=== PATIENT | female | born 1950 ===

== ENCOUNTER 2022-04-01 22:57 | Emergency (ER) | payer MEDICARE ==
[~2022-04-01] VITALS: Ht 149.9 cm; Wt 45.4 kg
[2022-04-01 23:27] LABS: BASOPHILS ABSOLUTE AUTO 0.04 K/mm3 (0.00-0.23); BASOPHILS PERCENT AUTO 0 % (0-2); EOSINOPHILS PERCENT AUTO 0 % (0-6); Hematocrit 35.4 % (33.0-51.0); Hemoglobin 12.1 g/dL (11.5-16.0); IMMATURE GRAN ABSOLUTE AUTO 0.11 K/mm3 (0.00-0.10); IMMATURE GRAN PERCENT AUTO 1 % (0-1); LYMPHOCYTES ABSOLUTE AUTO 1.08 K/mm3 (0.84-5.20); LYMPHOCYTES PERCENT AUTO 9 % (21-46); MONOCYTES ABSOLUTE AUTO 0.78 K/mm3 (0.16-1.47); MONOCYTES PERCENT AUTO 6 % (4-13); Mean Corpuscular HGB 28.1 pg (26.0-34.0); Mean Corpuscular HGB Conc 34.2 g/dL (31.5-36.5); Mean Corpuscular Volume 82 fL (80-100); Mean Platelet Volume 9.6 fL (9.1-12.4); NEUTROPHILS ABSOLUTE AUTO 10.72 K/mm3 (1.96-9.15); NEUTROPHILS PERCENT AUTO 84 % (41-73); Platelet Count 298 K/mm3 (150-400); RDW Coefficient Variation 14.3 % (11.7-14.2); RDW Standard Deviation 42.5 fL (35.1-46.3); White Blood Cell Count 12.73 K/mm3 (4.00-11.30)
[2022-04-01 23:52] LABS: Albumin, Blood 3.3 g/dL (3.4-5.0); Albumin/Globulin Ratio 0.7 (0.8-1.8); Bilirubin, Total 0.6 mg/dL (0.1-1.0); Bun/Creatinine Ratio 20.4 (12.0-20.0); Calcium, Blood 8.8 mg/dL (8.5-10.1); Creatinine, Blood 0.88 mg/dL (0.40-1.00); Globulin, Blood 4.6 g/dL (2.2-4.0); Potassium, Blood 5.5 mmol/L (3.5-5.5); Total Protein, Blood 7.9 g/dL (6.4-8.2)
[2022-04-02 00:49] LABS: Influenza B, PCR NEGATIVE (NEGATIVE); Resp Syncytial Virus, PCR NEGATIVE (NEGATIVE); SARS-Cov-2 (COVID-19) PCR, MMC NEGATIVE (NEGATIVE)
[2022-04-02 00:55] LABS: Influenza A, PCR POSITIVE (NEGATIVE)
[2022-04-02 02:15] LABS: Source, Urine Straight Cath
[2022-04-02 02:22] LABS: Appearance, Urine Clear (Clear); Bilirubin, Urine Neg (Neg); Blood, Urine Neg (Neg); Color, Urine Yellow (P-Yellow); Glucose Qualitative, Urine 4+ (Neg); Ketones, Urine 2+ (Neg); Leukocyte Esterase, Urine Neg (Neg); Nitrite, Urine Neg (Neg); Protein, Urine 1+ (Neg); Urobilinogen, Urine NORM (Normal)
[2022-04-02] MEDS ORDERED: OSEL75CA PO (02:57)
[2022-04-03] MEDS ORDERED: GABA300 PO (21:12)
[2022-04-03] MEDS ORDERED: GLIP10 PO (21:13)
[2022-04-03] MEDS ORDERED: DOXA2 PO ×2 (21:13→21:14)
[2022-04-03] MEDS ORDERED: Prinivil10 MG PO (21:14)
[2022-04-03] MEDS ORDERED: METF500 PO (21:15)
[2022-04-03] MEDS ORDERED: MAGNESIUM OXID500 MG PO (21:15)
[2022-04-03] MEDS ORDERED: PRAV20 PO (21:16)
[2022-04-03] MEDS ORDERED: KAPSPARGO SPRIN25 MG PO (21:16)
[2022-04-03] MEDS ORDERED: BASAGLAR K100 UNIT/1 SC (21:17)
== END 2022-04-02 03:30 | disposition home or self-care (01) ==
LOC: ER 22:57
PROVIDERS: Emergency Medicine
DX: J10.1 Influenza due to other identified influenza virus with other respiratory manifestations (principal); E11.9 Type 2 diabetes mellitus without complications; Z20.822 Contact with and (suspected) exposure to COVID-19; Z79.4 Long term (current) use of insulin; Z79.899 Other long term (current) drug therapy
CPT/HCPCS: 0241U; 36415; 51701; 71045; 80053; 83605; 85025; 93005; 93010; 99284-25; A9270; J7030

== ENCOUNTER 2022-04-03 10:49 | Inpatient (IN) | payer MEDICARE ==
[~2022-04-03] VITALS: Ht 152.4 cm; Wt 45.4 kg
[~2022-04-03 10:49] MED LIST: OSEL75CA PO
[2022-04-03 11:40] LABS: Calcium, Ionized (POC) 0.94 mmol/L (1.10-1.46); Chloride (POC) 102 mmol/L (98-108); Creatinine (POC) 0.8 mg/dL (0.6-1.0); Glucose (ISTAT POC) 294 mg/dL (70-99); Hemoglobin (POC) 11.9 g/dL (12.0-16.0); Potassium (POC) 4.9 mmol/L (3.5-5.5); Sodium (POC) 130 mmol/L (135-148); Total CO2 (POC) 16 mmol/L (21-32)
[2022-04-03 11:51] LABS: Hematocrit 31.4 % (33.0-51.0); Hemoglobin 10.1 g/dL (11.5-16.0); Mean Corpuscular HGB Conc 32.2 g/dL (31.5-36.5); Mean Platelet Volume 10.4 fL (9.1-12.4); Platelet Count 149 K/mm3 (150-400); RDW Coefficient Variation 15.4 % (11.7-14.2); RDW Standard Deviation 50.6 fL (35.1-46.3); Red Blood Cell Count 3.48 M/mm3 (3.80-5.20); White Blood Cell Count 17.42 K/mm3 (4.00-11.30)
[2022-04-03 11:53] LABS: Mean Corpuscular Volume 90 fL (80-100)
[2022-04-03 12:08] LABS: Albumin, Blood 2.1 g/dL (3.4-5.0); Albumin/Globulin Ratio 0.5 (0.8-1.8); Bilirubin, Total 1.2 mg/dL (0.1-1.0); Bun/Creatinine Ratio 29.7 (12.0-20.0); Creatinine, Blood 0.64 mg/dL (0.40-1.00); Globulin, Blood 4.6 g/dL (2.2-4.0); Potassium, Blood 5.2 mmol/L (3.5-5.5); Total Protein, Blood 6.7 g/dL (6.4-8.2)
[2022-04-03 13:15] LABS: BASOPHILS PERCENT MAN 0 % (0-2); EOSINOPHILS PERCENT MAN 0 % (0-6); LYMPHOCYTES ABSOLUTE MAN 1.21 K/mm3 (0.84-5.20); LYMPHOCYTES PERCENT MAN 7 % (21-46); MONOCYTES ABSOLUTE MAN 0.17 K/mm3 (0.16-1.47); MONOCYTES PERCENT MAN 1 % (4-13); NEUTROPHILS ABSOLUTE MAN 16.02 K/mm3 (1.96-9.15); SEG NEUTROPHILS PERCENT MAN 92 % (41-73); TOTAL CELLS COUNTED 100
[2022-04-03 14:05] LABS: Bicarbonate Venous 18.7 mmol/L (24.0-30.0); PCO2 Venous 29.4 mmHg (38-42); pH Blood Venous 7.38 (7.34-7.37)
--- NOTE | 2022-04-03 19:15 | NUR ---
PATIENT ARRIVED TO ROOM AT 1855. TRANSFERRED PATIENT TO BED USING SLIDER SHEET c 3 MAX ASSIST. REPORT GIVEN TO TITO GALARZA.
[2022-04-03] MEDS ORDERED: GABA300 PO (21:12)
[2022-04-03] MEDS ORDERED: DOXA2 PO ×2 (21:13→21:14)
[2022-04-03] MEDS ORDERED: GLIP10 PO (21:13)
[2022-04-03] MEDS ORDERED: Prinivil10 MG PO (21:14)
[2022-04-03] MEDS ORDERED: MAGNESIUM OXID500 MG PO (21:15)
[2022-04-03] MEDS ORDERED: METF500 PO (21:15)
[2022-04-03] MEDS ORDERED: PRAV20 PO (21:16)
[2022-04-03] MEDS ORDERED: KAPSPARGO SPRIN25 MG PO (21:16)
[2022-04-03] MEDS ORDERED: BASAGLAR K100 UNIT/1 SC (21:17)
--- NOTE | 2022-04-04 00:02 | NUR ---
2000 ASSESSMENT, ADMISSION COMPLETE. FAMILY ATBEDSIDE FOR TRANSLATION. SKIN ASSESSMENT COMPLETE, SKIN INTACT. PT DENIES SOB/CP/ N/V. REPORTS A COUGH AND FEELING WEAK. AMBULATED TO BATHROOM WITH X1 ASSIST AND FWW. IV FLUIDS CONTINUED. FAMILY BROUGHT IN MEDICATIONS AND LEFT PRIOR TO COMPLETING MED RED. MEDICATION BOTTLES IN LOCKED PT CHART BOX. PT ORIENTED X4, SPANIHS SPEAKING ONLY. FAMILY TRANSLATED USE OF CALL LIGHT AND PLAN OF CARE. NO FURTHER QUESTIONS FROM PT. 0000 PT HAS FEVER OR 102, ADMINISTERED TYLENOL AND ICE PACKS UNDER ARMS. FEVER DOWN TO 99.0. PT STILL LOOKING FLUSHED, ADMINISTERED PRN ADVIL.
[2022-04-04 04:37] LABS: Hematocrit 26.8 % (33.0-51.0); Hemoglobin 9.1 g/dL (11.5-16.0); Mean Corpuscular HGB 28.3 pg (26.0-34.0); Mean Platelet Volume 9.3 fL (9.1-12.4); Platelet Count 274 K/mm3 (150-400); RDW Coefficient Variation 14.9 % (11.7-14.2); RDW Standard Deviation 45.4 fL (35.1-46.3); Red Blood Cell Count 3.21 M/mm3 (3.80-5.20); White Blood Cell Count 19.84 K/mm3 (4.00-11.30)
[2022-04-04 04:46] LABS: Mean Corpuscular Volume 84 fL (80-100)
[2022-04-04 04:59] LABS: Bun/Creatinine Ratio 27.8 (12.0-20.0); Calcium, Blood 7.6 mg/dL (8.5-10.1); Creatinine, Blood 0.79 mg/dL (0.40-1.00); Magnesium, Blood 1.4 mg/dL (1.6-2.4); Potassium, Blood 4.1 mmol/L (3.5-5.5)
--- NOTE | 2022-04-04 05:22 | NUR ---
SHIFT SUMMARY NO CHANGES IN PT CONDITION SINCE ADMISSION/PREVIOUS NOTE. FEVER BROKE, 97.7 ORAL TEMP THIS MORNING. PT LOOKS FLUSHED, USING STAVE BLOCK SPLITTER TO TRANSLATE, PT STATES SHE FEEL BETTER THIS MORNING AND DOESNT FEEL WARM. BG 250. VITALS STABLE. PT ABLE TO MAKE NEEDS KNOWN, CALL LIGHT IN REACH.
--- NOTE | 2022-04-04 17:20 | NUR ---
SHIFT SUMMARY- PT FAMILY AT BEDSIDE THIS AFTERNOON. COMMUNICATION EASE WITH FAMILY. PT EXPRESSED R EYE LOSS OF VISION. PT HAD SCHEDULED APPT FOR SCREENIGN OF EYE BUT WAS ADMITTED TO HOSPITAL. IV PATENT. AFEBRILE THIS SHIFT. PT EXPRESSED TO FAMILY THAT SHE DID NOT HAVE PAIN OR DISCOMFORT TODAY. PT STATED SHE WAS EAGER TO RETURN HOME. NO SBO NOTED. ON RA. WILL CONTIUE TO MONITOR. CALL LIGHT IN REACH, SIDE RAILS UP FOR SAFETY, BED ALARM ON.
--- NOTE | 2022-04-04 18:37 | NUR ---
FAMILY VISITING. COMMUNICATION RELAYED TO PT FOR PT CONCERNS. GAVE HOME MEDS TO FAMILY TO TAKE HOME.
--- NOTE | 2022-04-05 03:41 | NUR ---
SHIFT SUMMARY NO OVERNIGHT EVENTS. VITALS STABLE, AFEBRILE. ALLOWING CARES. CONTINUES FLUIDS AND IV ABX. PT ORIENTED X4, FAROESE SPEAKING ONLY. AMBULATES TO BATHROOM [id number] WITH FWW. DENIES PAIN/SOB, PT DOES HAVE COUGH. CONTINUE DROPLET PRECAUTIONS. CALL LIGHT IN REACH, ABLE TO MAKE NEEDS KNOWN.
[2022-04-05 04:54] LABS: BASOPHILS ABSOLUTE AUTO 0.04 K/mm3 (0.00-0.23); BASOPHILS PERCENT AUTO 0 % (0-2); EOSINOPHILS ABSOLUTE AUTO 0.13 K/mm3 (0.00-0.68); EOSINOPHILS PERCENT AUTO 1 % (0-6); Hematocrit 24.3 % (33.0-51.0); Hemoglobin 8.3 g/dL (11.5-16.0); IMMATURE GRAN ABSOLUTE AUTO 0.08 K/mm3 (0.00-0.10); IMMATURE GRAN PERCENT AUTO 1 % (0-1); LYMPHOCYTES ABSOLUTE AUTO 1.59 K/mm3 (0.84-5.20); LYMPHOCYTES PERCENT AUTO 13 % (21-46); MONOCYTES ABSOLUTE AUTO 0.68 K/mm3 (0.16-1.47); MONOCYTES PERCENT AUTO 6 % (4-13); Mean Corpuscular HGB 28.7 pg (26.0-34.0); Mean Corpuscular HGB Conc 34.2 g/dL (31.5-36.5); Mean Corpuscular Volume 84 fL (80-100); Mean Platelet Volume 9.5 fL (9.1-12.4); NEUTROPHILS ABSOLUTE AUTO 9.72 K/mm3 (1.96-9.15); NEUTROPHILS PERCENT AUTO 79 % (41-73); Platelet Count 293 K/mm3 (150-400); RDW Standard Deviation 46.4 fL (35.1-46.3); Red Blood Cell Count 2.89 M/mm3 (3.80-5.20); White Blood Cell Count 12.24 K/mm3 (4.00-11.30)
[2022-04-05 05:11] LABS: Bun/Creatinine Ratio 28.6 (12.0-20.0); Calcium, Blood 7.6 mg/dL (8.5-10.1); Creatinine, Blood 0.6 mg/dL (0.40-1.00); Potassium, Blood 3.9 mmol/L (3.5-5.5)
[2022-04-05 09:30] LABS: Percent Saturation 17.8 % (15.0-50.0)
--- NOTE | 2022-04-05 16:12 | NUR ---
SHIFT SUMMARY PT RESTING QUIETLY AT START OF SHIFT. IVF'S INFUSING PER EMAR. PT ARABIC SPEAKING ONLY, BUT ABLE TO MAKE NEEDS KNOWN. 1P SBA WITH IV PUMP TO BTHRM AND BACK. MEDS TAKEN WHOLE WITH H2O. IV ABX GIVEN PER EMAR. DR THURMAN IN TO SEE PT THIS AM. PT TO STAY ONE MORE DAY FOR IV ABX. LUNGS T/O COARSE WITH EXP WHEEZES THRU OUT. PT ON RA, VSS; SEE CHART. POSSIPLE D/C TO HOME TOMORROW. CALL LT IN REACH.
--- NOTE | 2022-04-06 03:12 | NUR ---
PLEASANT A&OX4, REQUIRES TRANSLATING SYSTEM FOR NEW MEDS OR ANY UNFAMILIARS. DRINKING WELL. NO NAUSEA OR TEMP. HOPING TO GO HOME TOMORROW. STILL GETTING PO TAMIFLU LIQUID
[2022-04-06 04:29] LABS: Base Excess Venous 0.7 mmol/L; Bicarbonate Venous 25.3 mmol/L (24.0-30.0); PCO2 Venous 30.3 mmHg (38-42)
[2022-04-06 05:09] LABS: BASOPHILS ABSOLUTE AUTO 0.04 K/mm3 (0.00-0.23); BASOPHILS PERCENT AUTO 1 % (0-2); EOSINOPHILS ABSOLUTE AUTO 0.13 K/mm3 (0.00-0.68); EOSINOPHILS PERCENT AUTO 2 % (0-6); Hematocrit 24.3 % (33.0-51.0); Hemoglobin 8.3 g/dL (11.5-16.0); IMMATURE GRAN ABSOLUTE AUTO 0.07 K/mm3 (0.00-0.10); IMMATURE GRAN PERCENT AUTO 1 % (0-1); LYMPHOCYTES ABSOLUTE AUTO 2.02 K/mm3 (0.84-5.20); LYMPHOCYTES PERCENT AUTO 30 % (21-46); MONOCYTES ABSOLUTE AUTO 0.48 K/mm3 (0.16-1.47); MONOCYTES PERCENT AUTO 7 % (4-13); Mean Corpuscular HGB 27.9 pg (26.0-34.0); Mean Corpuscular HGB Conc 34.2 g/dL (31.5-36.5); Mean Corpuscular Volume 82 fL (80-100); Mean Platelet Volume 9.6 fL (9.1-12.4); NEUTROPHILS ABSOLUTE AUTO 4.05 K/mm3 (1.96-9.15); NEUTROPHILS PERCENT AUTO 60 % (41-73); Platelet Count 327 K/mm3 (150-400); RDW Coefficient Variation 15.1 % (11.7-14.2); RDW Standard Deviation 45.2 fL (35.1-46.3); Red Blood Cell Count 2.98 M/mm3 (3.80-5.20); White Blood Cell Count 6.79 K/mm3 (4.00-11.30)
[2022-04-06 05:35] LABS: Bun/Creatinine Ratio 14.2 (12.0-20.0); Calcium, Blood 7.6 mg/dL (8.5-10.1); Creatinine, Blood 0.57 mg/dL (0.40-1.00); Potassium, Blood 3.8 mmol/L (3.5-5.5)
[2022-04-06] MEDS ORDERED: LACT PO (12:04)
[2022-04-06] MEDS ORDERED: AZIT250 PO (12:04)
[2022-04-06] MEDS ORDERED: CEFU500T30 PO (12:05)
--- NOTE | 2022-04-06 18:29 | NUR ---
PT AWAKE AT START OF SHIFT, RESTING QUIETLY WATCHING TV. PT INQUIRED ABOUT GOING HOME. DR THURMAN NOTIFIED ABOUT D/C. PT TO D/C WITH PO ABX. D/C ORDERS PLACED. MEDS FAXED TO [facility] PER FAMILY REQUEST. FAMILY NOTIFIED OF PT D/C FOR P/U. FAMILY UNAVAILABLE FOR SEVERAL HOURS AFTER BEING NOTIFIED. FAMILY FINALLY HERE TO P/U PT. D/C ORDERS AND MEDS REVIEWED WITH RJ, SON-N-LAW, PER REQUEST; VERBALIZED UNDERSTANDING. PT ASSISTED OUT TO FAMILY CAR VIA W/C WITH BELONGINGS.
== END 2022-04-06 15:22 | disposition home or self-care (01) | DRG 871 ==
LOC: ER 10:49 → ERHOLD 14:26 → MEDS 14:26
PROVIDERS: Internal Medicine; Nurse Practitioner Acute Care; Physician Assistant; Student in an Organized Health Care Education/Training Program; ADMIT Internal Medicine
DX: A41.9 Sepsis, unspecified organism (principal); J10.08 Influenza due to other identified influenza virus with other specified pneumonia; J15.9 Unspecified bacterial pneumonia; E87.1 Hypo-osmolality and hyponatremia; E87.4 Mixed disorder of acid-base balance; R65.20 Severe sepsis without septic shock; E83.51 Hypocalcemia; I10 Essential (primary) hypertension; E78.5 Hyperlipidemia, unspecified; E86.0 Dehydration; D64.9 Anemia, unspecified; E11.9 Type 2 diabetes mellitus without complications; Z79.4 Long term (current) use of insulin; Z79.899 Other long term (current) drug therapy
CPT/HCPCS: 36415; 71045; 80047; 80048; 80053; 82728; 82803; 82947; 83540; 83550; 83605; 83735; 84145; 85014; 85025; 85027; A9270; J0456; J0696; J1650; J1815; J2405; J7030; J7050

== ENCOUNTER → 2022-08-07 | Outpatient (CLI) | payer SELFPAY ==
[~2022-08-07] MED LIST changes: +AZIT250 PO; +BASAGLAR K100 UNIT/1 SC; +CEFU500T30 PO; +DOXA2 PO; +GABA300 PO; +GLIP10 PO; +KAPSPARGO SPRIN25 MG PO; +LACT PO; +MAGNESIUM OXID500 MG PO; +METF500 PO; +PRAV20 PO; +Prinivil10 MG PO
[2022-08-07 16:22] LABS: Microalb/Creat Ratio UR, Rand 62.981 mg/g (0.000-30.000); Microalbumin, Random Urine 65.5 mg/L (0.000-20.000)
== END | disposition home or self-care (01) ==
LOC: LAB SHORT 12:45 → LAB 12:45
PROVIDERS: Family Medicine
DX: E11.9 Type 2 diabetes mellitus without complications (principal); E03.9 Hypothyroidism, unspecified
CPT/HCPCS: 82043; 82570; 84443

== ENCOUNTER → 2022-09-11 | Outpatient (CLI) | payer MEDICARE ==
[~2022-09-11] MED LIST changes: +ONDA4ODT MM
== END | disposition home or self-care (01) ==
LOC: LAB 16:14 → LAB SHORT 16:14
DX: R35.0 Frequency of micturition (principal)
CPT/HCPCS: 87086

== ENCOUNTER → 2022-11-06 | Outpatient (CLI) | payer SELFPAY ==
[2022-11-06 19:11] LABS: BASOPHILS ABSOLUTE AUTO 0.05 K/mm3 (0.00-0.23); BASOPHILS PERCENT AUTO 1 % (0-2); EOSINOPHILS ABSOLUTE AUTO 0.21 K/mm3 (0.00-0.68); EOSINOPHILS PERCENT AUTO 3 % (0-6); Hematocrit 36.7 % (33.0-51.0); IMMATURE GRAN ABSOLUTE AUTO 0.02 K/mm3 (0.00-0.10); IMMATURE GRAN PERCENT AUTO 0 % (0-1); LYMPHOCYTES ABSOLUTE AUTO 2.48 K/mm3 (0.84-5.20); LYMPHOCYTES PERCENT AUTO 41 % (21-46); MONOCYTES ABSOLUTE AUTO 0.39 K/mm3 (0.16-1.47); MONOCYTES PERCENT AUTO 6 % (4-13); Mean Corpuscular HGB 27.1 pg (26.0-34.0); Mean Corpuscular HGB Conc 32.7 g/dL (31.5-36.5); Mean Corpuscular Volume 83 fL (80-100); Mean Platelet Volume 11.4 fL (9.1-12.4); NEUTROPHILS ABSOLUTE AUTO 2.98 K/mm3 (1.96-9.15); NEUTROPHILS PERCENT AUTO 49 % (41-73); Platelet Count 246 K/mm3 (150-400); RDW Coefficient Variation 13.1 % (11.7-14.2); RDW Standard Deviation 39.3 fL (35.1-46.3); Red Blood Cell Count 4.42 M/mm3 (3.80-5.20); White Blood Cell Count 6.13 K/mm3 (4.00-11.30)
== END | disposition home or self-care (01) ==
LOC: LAB 18:19 → LAB SHORT 18:19
PROVIDERS: Nurse Practitioner Family
DX: E11.9 Type 2 diabetes mellitus without complications (principal); I10 Essential (primary) hypertension; E03.9 Hypothyroidism, unspecified; H53.8 Other visual disturbances
CPT/HCPCS: 83036; 84443; 85025

== ENCOUNTER 2022-12-08 08:48 | Inpatient (IN) | payer MEDICARE ==
[2022-12-08] VITALS (41 sets, daily range): BP systolic 100–148; BP diastolic 48–67
[~2022-12-08] VITALS: Ht 152.4 cm; Wt 53.1 kg
[2022-12-08 10:26] LABS: BASOPHILS ABSOLUTE AUTO 0.05 K/mm3 (0.00-0.23); BASOPHILS PERCENT AUTO 1 % (0-2); EOSINOPHILS ABSOLUTE AUTO 0.19 K/mm3 (0.00-0.68); EOSINOPHILS PERCENT AUTO 2 % (0-6); Hematocrit 34.7 % (33.0-51.0); Hemoglobin 11.6 g/dL (11.5-16.0); IMMATURE GRAN ABSOLUTE AUTO 0.06 K/mm3 (0.00-0.10); IMMATURE GRAN PERCENT AUTO 1 % (0-1); LYMPHOCYTES ABSOLUTE AUTO 2.61 K/mm3 (0.84-5.20); LYMPHOCYTES PERCENT AUTO 29 % (21-46); MONOCYTES ABSOLUTE AUTO 0.52 K/mm3 (0.16-1.47); MONOCYTES PERCENT AUTO 6 % (4-13); Mean Corpuscular HGB Conc 33.4 g/dL (31.5-36.5); Mean Corpuscular Volume 81 fL (80-100); Mean Platelet Volume 10.5 fL (9.1-12.4); NEUTROPHILS ABSOLUTE AUTO 5.56 K/mm3 (1.96-9.15); NEUTROPHILS PERCENT AUTO 62 % (41-73); Platelet Count 249 K/mm3 (150-400); RDW Coefficient Variation 13.6 % (11.7-14.2); RDW Standard Deviation 39.8 fL (35.1-46.3); Red Blood Cell Count 4.29 M/mm3 (3.80-5.20); White Blood Cell Count 8.99 K/mm3 (4.00-11.30)
[2022-12-08 11:45] LABS: Bun/Creatinine Ratio 19.1 (12.0-20.0); Calcium, Blood 9.3 mg/dL (8.5-10.1); Creatinine, Blood 1.31 mg/dL (0.40-1.00); Potassium, Blood 5.3 mmol/L (3.5-5.5)
[2022-12-08] MEDS ORDERED: JARDIANCE25 MG PO (11:59)
[2022-12-08] MEDS ORDERED: AMLO10 PO (11:59)
[2022-12-08] MEDS ORDERED: METO25ER PO (11:59)
[2022-12-08] MEDS ORDERED: GABA300 PO (12:00)
[2022-12-08] MEDS ORDERED: METF500 PO (12:03)
[2022-12-08] MEDS ORDERED: LISI20 PO (12:04)
[2022-12-08] MEDS ORDERED: LEVSOD25 PO (12:04)
[2022-12-08] MEDS ORDERED: PRAV20 PO (12:05)
[2022-12-08] MEDS ORDERED: MAGNESIUM OXID500 MG PO (12:05)
[2022-12-08] MEDS ORDERED: CARDURA2 M2 PO (12:05)
[2022-12-08 12:22] LABS: Source, Urine Foley catheter
[2022-12-08 12:26] LABS: Appearance, Urine Clear (Clear); Bilirubin, Urine Neg (Neg); Blood, Urine Neg (Neg); Glucose Qualitative, Urine 4+ (Neg); Ketones, Urine 1+ (Neg); Leukocyte Esterase, Urine Neg (Neg); Nitrite, Urine Neg (Neg); Protein, Urine Neg (Neg); Urobilinogen, Urine NORM (Normal)
[2022-12-08 12:36] LABS: Color, Urine Pale Yellow (P-Yellow)
--- NOTE | 2022-12-08 13:30 | NUR ---
INITIAL ASSESSMENT PATIENT ARRIVED FROM ER AT 1255. PATIENT INTUBATED AND SEDATED. PATIENT RESPONDS TO NOXIOUS STIMULI WITH GRIMACING AND SLIGHT MOVEMENT OF ALL EXTREMITIES. PATIENT CHINESE SPEAKING ONLY; SENIOR TECHNICAL EDITOR PHONE AT BEDSIDE. PATIENT'S NEPHEW, RJ, HERE AND IS PROVIDING THE INFORMATION THAT HE CAN. RJ STATES THAT PATIENT LIVES WITH HIM AND THEY TAKE HER TO [facility] EACH WEEK FOR THEM TO CHECK UP ON PATIENT AND TO SORT HER MEDICATIONS FOR HER. RJ PHONE NUMBER [phone]. PATIENT AFEBRILE. NO SIGNS OF PAIN NOTED. PATIENT'S TONGUE, CHIN AND ANTERIOR NECK SWOLLEN. PATIENT ON VENT SETTINGS OF AC 15, TV 350, PEEP 5 AND 30% FIO2. ETT 7.0 AND 20 CM AT THE GUM. LUNGS CLEAR AT THIS TIME. PATIENT HAS OCCASIONAL, NONPRODUCTIVE COUGH. PATIENT SB TO SR, HR 50S TO 60S. SBP IN THE 120S. 1+ EDEMA NOTED TO BILAT ANKLES. ABD MILDLY DISTENDED, SOFT, WITH NORMOACTIVE BOWEL SOUNDS NOTED. DATE OF LAST BM UNKNOWN. OG TO LIS. TEMP PROBE SMALLWOOD IN PLACE DRAINING LIGHT YELLOW COLORED URINE. PROPOFOL INFUSING AT 35 MCG/ KG/ MINUTE AND FENTANYL INFUSING AT 25 MCG/ HOUR. BED LOW, CALL LIGHT IN REACH.
--- NOTE | 2022-12-08 16:00 | NUR ---
PATIENT AFEBRILE. HR 40S TO 50S. SBP IN THE 120S. NO SIGNS OF PAIN NOTED. BED LOW, CALL LIGHT IN REACH.
--- NOTE | 2022-12-08 18:29 | NUR ---
CLEARED 44.8 MLS FROM FENTANYL DRIP AND 4.8 MLS FROM VERSED DRIP WITH CRISTI BRAVO RN.
--- NOTE | 2022-12-08 18:46 | NUR ---
SHIFT SUMMARY PATIENT REMAINED INTUBATED AND ON SEDATION. PATIENT RESPONDING TO VERBAL STIMULI AT ONE POINT. VERSED ADDED TO HELP WITH SEDATION. PATIENT REMAINED RESPONDING TO NOXIOUS STIMULI WITH GRIMACING AND MOVEMENT OF EXTREMITIES. PATIENT REMAINED AFEBRILE. PATIENT REMAINED ON VENT SETTINGS OF AC 16, TV 350, PEEP 5 AND 30% FIO2. PATIENT IN SB TO SR, HR 40S TO 60S. SBP LOW 100S TO 130S. NO BM THIS SHIFT. PATIENT REMAINED NPO. OG TO LIS. 600 MLS OF YELLOW URINE OUT FROM SMALLWOOD THIS SHIFT. NO CHANGES TO SKIN NOTED. SWELLING APPEARS UNCHANGED FROM INITIAL ASSESSMENT. PATIENT REPOSITIONED Q2H. PROPOFOL AT 20 MCG/ KG/ MINUTE, VERSED AT 2 MG/ HOUR, FENTANYL AT 25 MCG/ HOUR, NS AT 75 MLS/ HOUR. BLOOD SUGARS 305 AND 173 THIS SHIFT. PATIENT'S SON-IN-LAW, RJ, HERE TO SEE PATIENT THIS SHIFT. BED LOW, CALL LIGHT IN REACH. REPORT WILL BE GIVEN TO ASSUMING HEAD TELLER NURSE SHORTLY.
--- NOTE | 2022-12-08 19:15 | NUR ---
ASSUMPTION OF CARE: RECEIVED REPORT FROM CAMERON GALARZA. INTUBATED AND SEDATED. AC/VC WITH SETTINGS 16/350/5/35%. MAINTAINING SATS >95%. PROPOFOL INFUSING AT 20 MCG/KG/HR. FENTANYL DRIP AT 25 MCG/HR AND VERSED DRIP AT 2 MG/HR. ET TUBE 7.0, 20 CM AT THE GUMS. SCANT, THIN SECRETIONS SUCTIONED OUT OF ET TUBE. LUNG SOUNDS CLEAR IN ALL LOBES. CONTINUOUS CARDIAC MONITORING IN PLACE, HR 40'S-50'S. SBP 120'S. TONGUE AND ANTERIOR NECK HAVE MILD AMOUNTS OF SWELLING. INDWELLING TEMP SMALLWOOD IN PLACE FOR CRITICAL I&O. PATENT AND DRAINING YELLOW URINE TO GRAVITY. Q2 REPOSITIONING. PT HAS A 20 GAUGE IV IN RIGHT HAND WELL A 22 GAUGE IV IN LEFT HAND, BOTH INFUSING, CLEAN, DRY AND INTACT.
[2022-12-09] VITALS (95 sets, daily range): BP systolic 97–136; BP diastolic 43–74
[2022-12-09 03:35] LABS: BASOPHILS ABSOLUTE AUTO 0.01 K/mm3 (0.00-0.23); BASOPHILS PERCENT AUTO 0 % (0-2); EOSINOPHILS PERCENT AUTO 0 % (0-6); Hematocrit 30.6 % (33.0-51.0); Hemoglobin 10.4 g/dL (11.5-16.0); IMMATURE GRAN ABSOLUTE AUTO 0.06 K/mm3 (0.00-0.10); IMMATURE GRAN PERCENT AUTO 1 % (0-1); LYMPHOCYTES ABSOLUTE AUTO 1.12 K/mm3 (0.84-5.20); LYMPHOCYTES PERCENT AUTO 13 % (21-46); MONOCYTES ABSOLUTE AUTO 0.08 K/mm3 (0.16-1.47); MONOCYTES PERCENT AUTO 1 % (4-13); Mean Corpuscular HGB 26.9 pg (26.0-34.0); Mean Corpuscular Volume 79 fL (80-100); Mean Platelet Volume 10.1 fL (9.1-12.4); NEUTROPHILS PERCENT AUTO 85 % (41-73); Platelet Count 230 K/mm3 (150-400); RDW Coefficient Variation 13.6 % (11.7-14.2); RDW Standard Deviation 38.7 fL (35.1-46.3); Red Blood Cell Count 3.87 M/mm3 (3.80-5.20); White Blood Cell Count 8.37 K/mm3 (4.00-11.30)
[2022-12-09 03:53] LABS: Bun/Creatinine Ratio 26.5 (12.0-20.0); Calcium, Blood 8.4 mg/dL (8.5-10.1); Creatinine, Blood 0.87 mg/dL (0.40-1.00); Potassium, Blood 4.3 mmol/L (3.5-5.5)
--- NOTE | 2022-12-09 05:04 | NUR ---
SHIFT SUMMARY: REMAINS INTUBATED AND SEDATED T/O THE SHIFT. AC/VC 16/350/5/30%. SPO2 REMAINS >95%. ET TUBE 7.0 20 CM AT THE GUMS. SCANT AMOUNTS OF THIN, WHITE SECRETIONS SUCTIONED FROM ET TUBE. SPUTUM SAMPLE SENT FROM RT. CLEAR LUNG SOUNDS T/O UPPER AND LOWER LOBES. PROPOFOL DRIP TITRATED DOWN TO 10 MCG/KG/HR T/O THE SHIFT RELATED TO PT BEING BRADYCARDIC. CONTINUOUS CARDIAC MONITORING REMAINS IN PLACE, HR 40'S, SBP 120'S. OPENS EYES SPONTANEOUSLY AND RESPONDS TO PAINFUL STIMULI. FENTANYL DRIP AT 25 MCG/HR, VERSED DRIP AT 2 MG/HR. INFUSING THROUGH PERIPHERAL IV'S IN LEFT AND RIGHT HANDS. TEMP SMALLWOOD IN PLACE WHICH IS PATENT AND DRAINING PALE YELLOW URINE TO GRAVITY. CONTINUES TO HAVE SWELLING IN ANTERIOR NECK AND TONGUE. FAMILY AT THE BEDSIDE THIS EVENING AND UPDATED TO PLAN OF CARE AND PT STATUS.
--- NOTE | 2022-12-09 08:50 | NUR ---
CARE OF PT ASSUMED AT 0700. PT SEDATED ON MECH VENT W PROPOFOL AT 10MCG, VERSED AT 2MG/HR, AND FENT AT 25MCG/HR. PT BRADYCARDIC IN THE 40'S. PT HYPOTENSIVE AT TIMES W MAPS >65. RASS -3. NECK FEELS FIRM, TONGUE APPEARS SWOLLEN. FENTANYL GTT IN LOCK BOX CHANGED TO SUPERVISOR PAIRING AND INSPECTING; CHANGED BY NATHAN RN; NO FENTANYL TO WASTE.
--- NOTE | 2022-12-09 11:53 | NUR ---
FAMILY AT BEDSIDE. PROPOFOL PLACED ON STANDBY. PT NODS HEAD NO TO PAIN, IS ABLE TO FOLLOW SIMPLE COMMANDS.
--- NOTE | 2022-12-09 17:37 | NUR ---
PT WOKE UP SPONT. AT 1700. TRANSLATION SERVICES USED TO COMMUNICATE, PT ABLE TO FOLLOW COMMANDS, NODDED NO TO PAIN, NODDED YES TO ANXIETY; PROPOFOL INCREASED FROM 10MCG TO 20MCG. PT'S HEART RATE IN THE 40'S FOR MAJORITY OF SHIFT WITH OCC HYPOTENSION W MAPS >60-65. PT'S FAMILY CAME IN TODAY FOR ABOUT 15MIN; GIVEN UPDATE. RT CHECKED FOR A LEAK THIS SHIFT AT 1500; LEAK PRESENT. PT WILL LIKELY BE EXTUBATED TOMORROW PER DR ESTRADA.
--- NOTE | 2022-12-09 19:22 | NUR ---
ASSUMED CARE OF PATIENT. RECEIVED REPORT FROM MICHELL EASTMAN. PATIENT IS SLEEPING COMFORTABLY IN BED. BP 108/47, HR OF 42. REMAINS INTUBATED WITH VENT SETTINGS OF 12/350/5/30. ET TUBE 7.0, 20CM AT THE GUMS. O2 SATURATION OF 98. SMALLWOOD IN PLACE, DRAINING CLEAR YELLOW URINE. IV TO BILATERAL HANDS. PROPOFOL INFUSING AT 15MCG/KG/HR, NS AT 75mL/HR, VERSED AT 1MG/HR. WILL CONTINUE TO MONITOR.
[2022-12-10] VITALS (76 sets, daily range): BP systolic 89–162; BP diastolic 47–100
--- NOTE | 2022-12-10 06:00 | NUR ---
END OF SHIFT SUMMARY. PATIENT INTUBATED AND SEDATED THROUGHOUT ENTIRETY OF SHIFT. SHE WOULD GRIMACE DURING ORAL CARE, BUT DID NOT OPEN HER EYES OR RESPOND TO OTHER PAINFUL STIMULI. SINUS REBEKAH THROUGHOUT ENTIRETY OF SHIFT WITH HR IN 40'S. BP REMAINED STABLE. INTUBATED AND SEDATED, SETTINGS AT 12/350/5/30. O2 SATURATIONS REMAINED IN HIGH 90'S. ET TUBE 7.0, 20 CM AT THE GUMS. SMALLWOOD IN PLACE DRAINING CLEAR YELLOW URINE. PIV TO BILATERAL HANDS. PROPOFOL RUNNING AT 15, VERSED AT 1, FENTANTYL AT 25MCG. WILL CONTINUE TO MONITOR AND REPORT TO ONCOMING NURSE.
[2022-12-10 07:29] LABS: Bun/Creatinine Ratio 36.3 (12.0-20.0); Creatinine, Blood 0.63 mg/dL (0.40-1.00); Potassium, Blood 3.9 mmol/L (3.5-5.5)
[2022-12-10 07:30] LABS: Calcium, Blood 5.9 mg/dL (8.5-10.1)
[2022-12-10 08:22] LABS: BASOPHILS PERCENT AUTO 0 % (0-2); EOSINOPHILS PERCENT AUTO 0 % (0-6); Hematocrit 30.5 % (33.0-51.0); Hemoglobin 10.2 g/dL (11.5-16.0); IMMATURE GRAN ABSOLUTE AUTO 0.06 K/mm3 (0.00-0.10); IMMATURE GRAN PERCENT AUTO 1 % (0-1); LYMPHOCYTES ABSOLUTE AUTO 0.67 K/mm3 (0.84-5.20); LYMPHOCYTES PERCENT AUTO 9 % (21-46); MONOCYTES ABSOLUTE AUTO 0.14 K/mm3 (0.16-1.47); MONOCYTES PERCENT AUTO 2 % (4-13); Mean Corpuscular HGB 27.1 pg (26.0-34.0); Mean Corpuscular HGB Conc 33.4 g/dL (31.5-36.5); Mean Corpuscular Volume 81 fL (80-100); Mean Platelet Volume 10.5 fL (9.1-12.4); NEUTROPHILS ABSOLUTE AUTO 6.56 K/mm3 (1.96-9.15); NEUTROPHILS PERCENT AUTO 88 % (41-73); Platelet Count 219 K/mm3 (150-400); RDW Coefficient Variation 14.1 % (11.7-14.2); RDW Standard Deviation 41.4 fL (35.1-46.3); Red Blood Cell Count 3.77 M/mm3 (3.80-5.20); White Blood Cell Count 7.43 K/mm3 (4.00-11.30)
[2022-12-10 12:23] LABS: Bun/Creatinine Ratio 33.4 (12.0-20.0); Creatinine, Blood 0.93 mg/dL (0.40-1.00); Potassium, Blood 4.1 mmol/L (3.5-5.5)
[2022-12-10 12:24] LABS: Calcium, Blood 7.9 mg/dL (8.5-10.1)
--- NOTE | 2022-12-10 14:37 | NUR ---
VERSED WASTE REMAINING 68 ML'S WASTED WITH MICHELE KUMAR RN.
--- NOTE | 2022-12-10 14:39 | NUR ---
EXTUBATION PROPOFOL AND VERSED GTT ON STANDBY THIS AFTERNOON. PT PLACED ON PRESSURE SUPPORT 10/5, FIO2 30%. PT IS AWAKE AND NODS HEAD TO QUESTIONS. PT WITH AUDIBLE LEAK NOTED WITH CUFF DEFLATION BY RT. DR ESTRADA NOTIFIED AND OK FOR EXTUBATION. PT EXTUBATED BY RT KATI AT 1425. PT ON ROOM AIR. SPO2 >90%.
--- NOTE | 2022-12-10 18:07 | NUR ---
SHIFT SUMMARY PT DID WELL THIS SHIFT. PT EXTUBATED AT 1425 TO ROOM AIR AND HAS REMAINED AWAKE AND ALERT S/P EXTUBATION. IV'S REMAIN IN PLACE WITH NS INFUSING TKO. PT ABLE TO NOD HEAD YES/NO TO SIMPLE QUESTIONS. PT CAPE VERDEAN SPEAKING. BUSINESS ANALYTICS DIRECTOR SERVICES USED THIS AFTERNOON. PT REPORTS NO PAIN, DISCOMFORT, OR SOB. PT TOUNGE REMAINS WITH SOME SWELLING. PT REMAINS NPO AT THIS TIME. SMALLWOOD TEMP PROBE REMAINS IN PLACE WITH CLEAR YELLOW URINE OUTPUT NOTED. VITAL SIGNS REMAINED STABLE. PT FAMILY AT BEDSIDE THIS AFTERNOON, UPDATED TO PT CONDITION AND PLAN OF CARE. WILL CONTINUE TO MONITOR AND REPORT OFF TO ONCOMING RN.
--- NOTE | 2022-12-10 19:28 | NUR ---
ASSUMED CARE OF PATIENT. RECEIVED REPORT FROM NATHAN RN AND MICHELE RN. PATIENT ALERT AND ORIENTED. WAVED AND NODDED HER HEAD WE ENTERED THE ROOM, BUT IS GABONESE SPEAKING ONLY. SR WITH HR IN 70'S, BP STABLE. ON ROOM AIR WITH O2 SATURATIONS AT 92%. SMALLWOOD IN PLACE, DRAINING CLEAR YELLOW URINE TO GRAVITY. NPO. PIV IN BILATERAL HANDS IN PLACE - TKO ONLY RUNNING. WILL CONTINUE TO MONITOR. SEE SHIFT ASSESSMENT FOR FULL ASSESSMENT.
[2022-12-11] VITALS (26 sets, daily range): BP systolic 134–166; BP diastolic 50–82
--- NOTE | 2022-12-11 05:23 | NUR ---
END OF SHIFT SUMMARY PATIENT REMAINED ALERT DURING THE ENTIRETY OF THE SHIFT. UNABLE TO ASSESS FULL ORIENTATION D/T PATIENT BEING GERMAN SPEAKING ONLY. ATTEMPTED TO USE THE INTERPRETOR PHONE, BUT THE PATIENT WAS UNABLE TO HEAR THE RACK LOADER. HER WEN STOPPED BY ON HIS WAY TO WORK AND WAS ABLE TO PROVIDE PATIENT FURTHER REASSURANCE THAT SHE WAS SAFE AND THAT MYSELF AND HEAVEN RN WOULD BE PROVIDING CARE TO HER THROUGHOUT THE EVENING. BP REMAINED STABLE THROUGHOUT THE ENTIRETY OF THE SHIFT, SR WITH HR IN 50's-80's. PATIENT REMAINED ON ROOM AIR THROUGHOUT ENTIRE SHIFT WITH O2 SATURATIONS IN THE 90's. NO BM DURING THIS SHIFT. TEMP SMALLWOOD IS STILL IN PLACE, DRAINING CLEAR YELLOW URINE TO GRAVITY. PIV TO L HAND IS RUNNING NS AT 10mL/HR TKO - PIV TO R HAND FLUSHES WELL BUT DOES NOT DRAW. WILL CONTINUE TO MONITOR AND REPORT TO ONCOMING NURSE.
--- NOTE | 2022-12-11 07:00 | NUR ---
ASSUME CARE: I have assumed care of this patient.
--- NOTE | 2022-12-11 17:25 | NUR ---
PROVIDER PHONE CALL: Dr Cordoba notified of pt's POC blood sugar. See new orders.
--- NOTE | 2022-12-11 18:45 | NUR ---
SHIFT/TRANSFER SUMMARY: Pt worked with ST, PT, and OT today. Initial, she was very disoriented, but this improved throughout the day. Family at bedside this afternoon. Pt's grandson notes that pt is often disoriented upon leaving the house. She was up several times to the commode with the walker. Poor appetite. Pt was transferred to medical floor via wheelchair by RN. Family called with no answer; HIPAA compliant message left for son-in-law.
--- NOTE | 2022-12-11 19:12 | NUR ---
NOTES: PATIENT ARRIVES TO ROOM AT AROUND 1855 VIA WHEELCHAIR FROM ICU ROOM 6. TRANSFERRED PATIENT TO BED c 1 ASSIST. ORIENT TO ROOM AND CALL LIGHT. BED ALARM ON FOR SAFETY. BEDSIDE REPORTS GIVEN TO ONCOMING RNNEHAL.
--- NOTE | 2022-12-12 00:09 | NUR ---
RECEIVED PT FROM UNIT, A/O QUIET AND SLOW TO SPEAKS, ARMENIAN SPEAKING PT. I SPEAK ARMENIAN SO WAS ABLE TO COMMUNICATE WITH PT. PT HAS NO DISTRESS NO C/O PAIN
[2022-12-12 04:53] VITALS: BP 147/56
[2022-12-12 05:25] LABS: Bun/Creatinine Ratio 35.4 (12.0-20.0); Calcium, Blood 8.7 mg/dL (8.5-10.1); Creatinine, Blood 0.71 mg/dL (0.40-1.00); Potassium, Blood 3.3 mmol/L (3.5-5.5)
--- NOTE | 2022-12-12 05:43 | NUR ---
SHIFT SUMMARY A/O ROMANIAN SPEAKING PT SOFT SPOKEN. PT DOES NOT USE CALL LIGHT BUT ONEAL OUT WHEN NEEDING HELP. ASSISTED PT TO BATHROOM SEVERAL TIMES. PT SLOW BUT STEADY AND SHUFFLES STEPS. UNEVENTFUL EVENING
[2022-12-12 07:41] VITALS: BP 149/67
[2022-12-12] MEDS ORDERED: HYDCHL25 PO (11:17)
--- NOTE | 2022-12-12 14:16 | NUR ---
SHIFT/DISCHARGE SUMMARY: PATIENT ALERT, AWAKE AND ORIENTED TO SELF AND PLACED. KYRGYZ SPEAKING ONLY, COMBAT CONTROL MANAGER PHONE AT BEDSIDE AND HAS BEEN UTILIZED FOR ASSESSMENT AND PROVIDING CARE FOR PATIENT. DENIES CP/PRESSURE, SOB, N/V AND GENERALIZED PAIN. PATIENT IS CONTINENCE OF BOWELS AND BLADDER, AMBULATES TO BATHROOM c 1 ASSIST. PATIENT K THIS AM WAS 3.3, RECEIVED OT DOSE OF IV POTASSIUM CHLORIDE. RECEIVED IV ABX AND SCHEDULED PO MEDS PER EMAR. ST CAME AND SAW PATIENT THIS AM, DIET CHANGED TO MECH SOFT FOR LUNCH. PATIENT TOLERATED MECH SOFT DIET WELL WITHOUT ANY SIGNS OF DIFFICULTY SWALLOWING. PATIENT WORK c PT MOBILITY THIS AM AND TOLERATED WELL. PT RECOMMENDED HH SERVICES. VITAL SIGNS REVIEWED. PIV TO L AND R HAND DC'D. PATIENT DISCHARGE HOME. DISCHARGE INSTRUCTIONS PACKET GIVEN TO PATIENT/SON (RJ) AT BEDSIDE. EDUCATE PATIENT/RJ REGARDING ADMITTING DX OF ANGIOEDEMA D/T SHERLEY INHIBITOR MEDICATIONS, S/S, TX, HH SERVICES AND NEW PRESCRIBED MEDICATIONS TO HOME. PATIENT/RJ VERBALIZED UNDERSTANDING AND NO FURTHER QUESTIONS. RX WAS FAXED TO PATIENT/RJ PREFERRED PHARMACY (DOC). ALL PATIENT PERSONAL BELONGINGS WERE SENT HOME c THE PATIENT. PATIENT LEFT THE ROOM AT AROUND 1350 AND WAS TRANSPORTED VIA WHEELCHAIR TO PATIENT ENTRANCE.
== END 2022-12-12 13:42 | disposition home health service (06) | DRG 915 ==
LOC: ER 08:48 → ICUE 11:45 → MEDS 12-11 18:50
PROVIDERS: Internal Medicine; Internal Medicine Critical Care Medicine; Student in an Organized Health Care Education/Training Program; ADMIT Internal Medicine
PROC: 5A1945Z Respiratory Ventilation, 24-96 Consecutive Hours (ICD-10-PCS; principal; 2022-12-08)
PROC: 0BH17EZ Insertion of Endotracheal Airway into Trachea, Via Natural or Artificial Opening (ICD-10-PCS; 2022-12-08)
PROC: 0T9B70Z Drainage of Bladder with Drainage Device, Via Natural or Artificial Opening (ICD-10-PCS; 2022-12-08)
PROC: 0DH67UZ Insertion of Feeding Device into Stomach, Via Natural or Artificial Opening (ICD-10-PCS; 2022-12-10)
DX: T78.3XXA Angioneurotic edema, initial encounter (principal); J69.0 Pneumonitis due to inhalation of food and vomit; J96.90 Respiratory failure, unspecified, unspecified whether with hypoxia or hypercapnia; E87.1 Hypo-osmolality and hyponatremia; N17.9 Acute kidney failure, unspecified; T46.4X5A Adverse effect of angiotensin-converting-enzyme inhibitors, initial encounter; Z51.5 Encounter for palliative care; E11.9 Type 2 diabetes mellitus without complications; I10 Essential (primary) hypertension; D50.9 Iron deficiency anemia, unspecified; E78.00 Pure hypercholesterolemia, unspecified; X58.XXXA Exposure to other specified factors, initial encounter; R00.1 Bradycardia, unspecified; Z91.013 Allergy to seafood; Z79.811 Long term (current) use of aromatase inhibitors; Z79.4 Long term (current) use of insulin; Z79.899 Other long term (current) drug therapy; Z86.19 Personal history of other infectious and parasitic diseases; Z87.01 Personal history of pneumonia (recurrent)
CPT/HCPCS: 31500; 36415; 51702; 71045; 80048; 81003; 82330; 82947; 85025; 87070; 87205; 92526; 92610; 94002; 94003; 94760; 96361-59; 96374-59; 96375-59; 97110; 97162; 97165; 97530; 97535; 99291-25; 99292; A9270; J0330; J0696; J1200; J1650; J1815; J2001; J2250; J2405; J2704; J2930; J3010; J3480; J7030; J7050

== ENCOUNTER → 2023-01-28 | Outpatient (CLI) | payer MEDICARE, OTHER ==
[~2023-01-28] MED LIST changes: +AMLO10 PO; +BENADRYL25 M1 PO; +CARDURA2 M2 PO; +FAMO20 PO; +FURO40 PO; +HYDCHL25 PO; +JARDIANCE25 MG PO; +LEVSOD25 PO; +LISI20 PO; +METO25ER PO; +METPRE4DP PO; +POTA10T PO; +PRED20 PO
[2023-01-28 19:05] LABS: BASOPHILS ABSOLUTE AUTO 0.07 K/mm3 (0.00-0.23); BASOPHILS PERCENT AUTO 1 % (0-2); EOSINOPHILS ABSOLUTE AUTO 0.72 K/mm3 (0.00-0.68); EOSINOPHILS PERCENT AUTO 12 % (0-6); Hematocrit 34.6 % (33.0-51.0); Hemoglobin 11.4 g/dL (11.5-16.0); IMMATURE GRAN ABSOLUTE AUTO 0.03 K/mm3 (0.00-0.10); IMMATURE GRAN PERCENT AUTO 1 % (0-1); LYMPHOCYTES ABSOLUTE AUTO 2.08 K/mm3 (0.84-5.20); LYMPHOCYTES PERCENT AUTO 33 % (21-46); MONOCYTES ABSOLUTE AUTO 0.31 K/mm3 (0.16-1.47); MONOCYTES PERCENT AUTO 5 % (4-13); Mean Corpuscular HGB 26.9 pg (26.0-34.0); Mean Corpuscular HGB Conc 32.9 g/dL (31.5-36.5); Mean Corpuscular Volume 82 fL (80-100); NEUTROPHILS ABSOLUTE AUTO 3.03 K/mm3 (1.96-9.15); NEUTROPHILS PERCENT AUTO 49 % (41-73); Platelet Count 343 K/mm3 (150-400); RDW Coefficient Variation 15.4 % (11.7-14.2); RDW Standard Deviation 46.3 fL (35.1-46.3); Red Blood Cell Count 4.24 M/mm3 (3.80-5.20); White Blood Cell Count 6.24 K/mm3 (4.00-11.30)
[2023-01-28 19:17] LABS: Bun/Creatinine Ratio 10.6 (12.0-20.0); Calcium, Blood 8.5 mg/dL (8.5-10.1); Creatinine, Blood 1.04 mg/dL (0.40-1.00); Potassium, Blood 5.1 mmol/L (3.5-5.5)
== END | disposition home or self-care (01) ==
LOC: LAB SHORT 16:25 → LAB 16:25
PROVIDERS: Nurse Practitioner Family
DX: I10 Essential (primary) hypertension (principal)
CPT/HCPCS: 80048; 85025

== ENCOUNTER → 2023-03-11 | Outpatient (CLI) | payer MEDICARE, OTHER ==
[2023-03-11 21:12] LABS: Bun/Creatinine Ratio 12.9 (12.0-20.0); Calcium, Blood 8.9 mg/dL (8.5-10.1); Creatinine, Blood 0.62 mg/dL (0.40-1.00); Potassium, Blood 3.8 mmol/L (3.5-5.5)
== END ==
LOC: LAB 17:33 → LAB SHORT 17:33
PROVIDERS: Nurse Practitioner Family
DX: I10 Essential (primary) hypertension (principal)
CPT/HCPCS: 80048

== ENCOUNTER → 2023-07-19 | Outpatient (CLI) | payer MEDICARE, OTHER | END | disposition home or self-care (01) | LOC: LAB 17:22 → LAB SHORT 17:22 | DX: N39.0 Urinary tract infection, site not specified (principal) | CPT/HCPCS: 87086; 87147 ==

== ENCOUNTER → 2023-07-19 | Outpatient (CLI) | payer MEDICARE, OTHER ==
[2023-07-19 19:16] LABS: BASOPHILS ABSOLUTE AUTO 0.05 K/mm3 (0.00-0.23); BASOPHILS PERCENT AUTO 1 % (0-2); EOSINOPHILS ABSOLUTE AUTO 0.19 K/mm3 (0.00-0.68); EOSINOPHILS PERCENT AUTO 2 % (0-6); Hematocrit 33.6 % (33.0-51.0); Hemoglobin 11.1 g/dL (11.5-16.0); IMMATURE GRAN ABSOLUTE AUTO 0.05 K/mm3 (0.00-0.10); IMMATURE GRAN PERCENT AUTO 1 % (0-1); LYMPHOCYTES ABSOLUTE AUTO 2.75 K/mm3 (0.84-5.20); LYMPHOCYTES PERCENT AUTO 31 % (21-46); MONOCYTES ABSOLUTE AUTO 0.54 K/mm3 (0.16-1.47); MONOCYTES PERCENT AUTO 6 % (4-13); Mean Corpuscular HGB 26.7 pg (26.0-34.0); Mean Corpuscular Volume 81 fL (80-100); Mean Platelet Volume 10.4 fL (9.1-12.4); NEUTROPHILS ABSOLUTE AUTO 5.25 K/mm3 (1.96-9.15); NEUTROPHILS PERCENT AUTO 59 % (41-73); Platelet Count 265 K/mm3 (150-400); RDW Coefficient Variation 16.4 % (11.7-14.2); RDW Standard Deviation 48.4 fL (35.1-46.3); Red Blood Cell Count 4.15 M/mm3 (3.80-5.20); White Blood Cell Count 8.83 K/mm3 (4.00-11.30)
== END ==
LOC: LAB 14:30 → LAB SHORT 14:30
PROVIDERS: Nurse Practitioner Family
DX: I10 Essential (primary) hypertension (principal)
CPT/HCPCS: 85025

== ENCOUNTER → 2023-11-05 | Outpatient (CLI) | payer MEDICARE, OTHER ==
[2023-11-05 15:20] LABS: BASOPHILS ABSOLUTE AUTO 0.09 K/mm3 (0.00-0.23); BASOPHILS PERCENT AUTO 1 % (0-2); EOSINOPHILS ABSOLUTE AUTO 0.42 K/mm3 (0.00-0.68); EOSINOPHILS PERCENT AUTO 6 % (0-6); Hemoglobin 11.4 g/dL (11.5-16.0); IMMATURE GRAN ABSOLUTE AUTO 0.01 K/mm3 (0.00-0.10); IMMATURE GRAN PERCENT AUTO 0 % (0-1); LYMPHOCYTES ABSOLUTE AUTO 2.48 K/mm3 (0.84-5.20); LYMPHOCYTES PERCENT AUTO 37 % (21-46); MONOCYTES ABSOLUTE AUTO 0.44 K/mm3 (0.16-1.47); MONOCYTES PERCENT AUTO 7 % (4-13); Mean Corpuscular HGB 28.5 pg (26.0-34.0); Mean Corpuscular HGB Conc 33.5 g/dL (31.5-36.5); Mean Corpuscular Volume 85 fL (80-100); Mean Platelet Volume 10.2 fL (9.1-12.4); NEUTROPHILS ABSOLUTE AUTO 3.34 K/mm3 (1.96-9.15); NEUTROPHILS PERCENT AUTO 49 % (41-73); Platelet Count 284 K/mm3 (150-400); RDW Coefficient Variation 13.2 % (11.7-14.2); RDW Standard Deviation 41.1 fL (35.1-46.3); White Blood Cell Count 6.78 K/mm3 (4.00-11.30)
[2023-11-05 15:47] LABS: Albumin, Blood 3.5 g/dL (3.4-5.0); Albumin/Globulin Ratio 0.9 (0.8-1.8); Bilirubin, Total 0.3 mg/dL (0.1-1.0); Bun/Creatinine Ratio 23.3 (12.0-20.0); Calcium, Blood 8.6 mg/dL (8.5-10.1); Creatinine, Blood 1.03 mg/dL (0.40-1.00); Globulin, Blood 3.8 g/dL (2.2-4.0); Potassium, Blood 4.1 mmol/L (3.5-5.5); Total Protein, Blood 7.3 g/dL (6.4-8.2)
== END | disposition home or self-care (01) ==
LOC: LAB SHORT 14:29 → LAB 14:29
PROVIDERS: Nurse Practitioner Family
DX: N39.0 Urinary tract infection, site not specified (principal); I10 Essential (primary) hypertension
CPT/HCPCS: 80053; 85025; 87086

== ENCOUNTER 2024-04-20 08:48 | Day surgery (SDC) | payer MEDICARE, OTHER ==
[~2024-04-20] VITALS: Ht 139.7 cm; Wt 50.2 kg
[~2024-04-20 08:48] MED LIST changes: +ALBU90OI INH; +AMLO5 PO; +Balanced Salt Epinephrine Irrigation Solution 500 mL IR SCH; +DONE5 PO; +Diazepam 2 MG Tab ONE; +Diazepam 5 MG Tab ONE; +FARXIGA5 MG PO; +INSULIN GLARGINE SC; +LASIX40 MG PO; +LOSARTAN POTAS100 M1 PO; +Lidocaine HCl/Pf 1% 5 ML VIAL XX SCH; +METFORMIN HCL1000 M6 PO; +Moxifloxacin HCL 0.5 MG/0.1 ML 0.4MLSYR RIGHTEYE SCH; +PHENYLEPHRINE\\TROPICAMIDE\\TETRACAINE OPHTHALMIC DILATING SOLN RIGHTEYE PRN; +POTASSIUM CHLORIDE PO; +Povidone-Iodine 450 DROP/30 ML Solution ONE; +Povidone-Iodine 450 DROP/30 ML Solution RIGHTEYE SCH; +Pravastatin Sod40 MG PO; +TOPROL XL25 MG PO; +Tetracaine HCl/Pf 0.5% Opth Soln 4 ml ONE; +Triamcinolone Inj Susp 40 MG / ML 1ML Vial INJ SCH; +Triamcinolone Inj Susp 40 MG / ML 1ML Vial ONE; +ZYRTEC10 M2 PO
[2024-04-20 10:33] VITALS: BP 170/60
== END 2024-04-20 10:50 | disposition home or self-care (01) ==
LOC: ORSCSDS 08:48
PROVIDERS: Ophthalmology
PROC: 08RJ3JZ Replacement of Right Lens with Synthetic Substitute, Percutaneous Approach (ICD-10-PCS; principal; 2024-04-20 10:00)
DX: E11.36 Type 2 diabetes mellitus with diabetic cataract (principal); H25.811 Combined forms of age-related cataract, right eye; R80.9 Proteinuria, unspecified; I12.9 Hypertensive chronic kidney disease with stage 1 through stage 4 chronic kidney disease, or unspecified chronic kidney disease; E11.22 Type 2 diabetes mellitus with diabetic chronic kidney disease; N18.2 Chronic kidney disease, stage 2 (mild); K21.9 Gastro-esophageal reflux disease without esophagitis; Z79.84 Long term (current) use of oral hypoglycemic drugs; Z79.899 Other long term (current) drug therapy; Z79.4 Long term (current) use of insulin
CPT/HCPCS: 82947; A9270; J3301; V2632

== ENCOUNTER 2024-04-27 08:44 | Day surgery (SDC) | payer MEDICARE, OTHER ==
[~2024-04-27] VITALS: Ht 142.2 cm; Wt 51.6 kg
[~2024-04-27 08:44] MED LIST changes: -Diazepam 2 MG Tab ONE; -Diazepam 5 MG Tab ONE; +Moxifloxacin HCL 0.5 MG/0.1 ML 0.4MLSYR LEFTEYE SCH; -Moxifloxacin HCL 0.5 MG/0.1 ML 0.4MLSYR RIGHTEYE SCH; +PHENYLEPHRINE\\TROPICAMIDE\\TETRACAINE OPHTHALMIC DILATING SOLN LEFTEYE PRN; -PHENYLEPHRINE\\TROPICAMIDE\\TETRACAINE OPHTHALMIC DILATING SOLN RIGHTEYE PRN; +Povidone-Iodine 450 DROP/30 ML Solution LEFTEYE SCH; -Povidone-Iodine 450 DROP/30 ML Solution RIGHTEYE SCH
[2024-04-27] MEDS ORDERED: Diazepam 2 MG Tab ONE (09:02)
[2024-04-27] MEDS ORDERED: Diazepam 5 MG Tab ONE (09:03)
--- NOTE | 2024-04-27 09:26 | NUR ---
04/27/24 0926 An Daly 0915: PT REPORTS ANXIETY LEVEL OF 0/10, STATES "NONE" 0916: PATIENT REPORTS SHE TOOK NO MEDICINE THIS AM, WAS NOT GIVEN A RX FOR VALIUM AT HOME 09: PT GIVEN 7 MG PO VALIUM PER ORDERS
[2024-04-27] MEDS ORDERED: ALEN70 PO (09:46)
[2024-04-27] MEDS ORDERED: TRADJENTA5 MG PO (09:47)
[2024-04-27] MEDS ORDERED: Tetracaine HCl 0.5% Opth Soln 15 ml LEFTEYE ONE (10:06)
[2024-04-27 10:32] VITALS: BP 173/68
--- NOTE | 2024-04-27 10:40 | NUR ---
04/27/24 1040 OSBALDO FLORES PT FAMILY, RJ IN TO ASSIST WITH TRANSLATION FOR PATIENT. PT DECLINED ANYTHING TO EAT/DRINK. SHE IS VERY QUIET. APPEARS TO BE LISTENING BUT UNCERTAIN IF SHE IS ABLE TO UNDERSTAND
== END 2024-04-27 10:45 | disposition home or self-care (01) ==
LOC: ORSCSDS 08:44
PROVIDERS: Ophthalmology
PROC: 08RK3JZ Replacement of Left Lens with Synthetic Substitute, Percutaneous Approach (ICD-10-PCS; principal; 2024-04-27 10:00)
DX: E11.36 Type 2 diabetes mellitus with diabetic cataract (principal); H25.812 Combined forms of age-related cataract, left eye; Z96.1 Presence of intraocular lens; I10 Essential (primary) hypertension; E07.9 Disorder of thyroid, unspecified; Z79.4 Long term (current) use of insulin; Z79.84 Long term (current) use of oral hypoglycemic drugs; Z79.899 Other long term (current) drug therapy
CPT/HCPCS: 82947; A9270; J3301; V2632

== ENCOUNTER → 2025-01-09 | Outpatient (CLI) | payer MEDICARE ==
[~2025-01-09] MED LIST changes: +ALEN70 PO; -Balanced Salt Epinephrine Irrigation Solution 500 mL IR SCH; -Lidocaine HCl/Pf 1% 5 ML VIAL XX SCH; -Moxifloxacin HCL 0.5 MG/0.1 ML 0.4MLSYR LEFTEYE SCH; -PHENYLEPHRINE\\TROPICAMIDE\\TETRACAINE OPHTHALMIC DILATING SOLN LEFTEYE PRN; -Povidone-Iodine 450 DROP/30 ML Solution LEFTEYE SCH; -Povidone-Iodine 450 DROP/30 ML Solution ONE; +TRADJENTA5 MG PO; -Tetracaine HCl/Pf 0.5% Opth Soln 4 ml ONE; -Triamcinolone Inj Susp 40 MG / ML 1ML Vial INJ SCH; -Triamcinolone Inj Susp 40 MG / ML 1ML Vial ONE
[2025-01-09 15:21] LABS: BASOPHILS ABSOLUTE AUTO 0.08 K/mm3 (0.00-0.23); BASOPHILS PERCENT AUTO 1 % (0-2); EOSINOPHILS ABSOLUTE AUTO 0.27 K/mm3 (0.00-0.68); EOSINOPHILS PERCENT AUTO 4 % (0-6); Hematocrit 34.2 % (33.0-51.0); Hemoglobin 11.2 g/dL (11.5-16.0); IMMATURE GRAN ABSOLUTE AUTO 0.04 K/mm3 (0.00-0.10); IMMATURE GRAN PERCENT AUTO 1 % (0-1); LYMPHOCYTES ABSOLUTE AUTO 2.29 K/mm3 (0.84-5.20); LYMPHOCYTES PERCENT AUTO 30 % (21-46); MONOCYTES ABSOLUTE AUTO 0.44 K/mm3 (0.16-1.47); MONOCYTES PERCENT AUTO 6 % (4-13); Mean Corpuscular HGB Conc 32.7 g/dL (31.5-36.5); Mean Corpuscular Volume 84 fL (80-100); NEUTROPHILS ABSOLUTE AUTO 4.42 K/mm3 (1.96-9.15); NEUTROPHILS PERCENT AUTO 59 % (41-73); NRBC ABSOLUTE 0.00 K/mm3 (0.00-0.02); NRBC Auto 0.0 /100 WBC (0.0-0.2); Platelet Count 244 K/mm3 (150-400); RDW Coefficient Variation 14.2 % (11.7-14.2); RDW Standard Deviation 43.0 fL (35.1-46.3)
[2025-01-09 19:16] LABS: Alanine Aminotransfer (ALT/SGP 34 U/L (12-78); Albumin, Blood 3.6 g/dL (3.4-5.0); Albumin/Globulin Ratio 0.9 (0.8-1.8); Anion Gap 13 mmol/L (3-11); Aspartate Aminotrans (AST/SGOT 23 U/L (12-37); Bilirubin, Total 0.3 mg/dL (0.1-1.0); Blood Urea Nitrogen 21 mg/dL (8-24); CHOL/HDL RATIO 3.4; CO2, Blood 24 mmol/L (21-32); Calcium, Blood 9.3 mg/dL (8.5-10.1); Chloride, Blood 103 mmol/L (98-108); Cholesterol 167 mg/dL (50-200); Creatinine, Blood 0.97 mg/dL (0.40-1.00); Globulin, Blood 4.0 g/dL (2.2-4.0); Glucose, Blood 256 mg/dL (70-99); HDL Cholesterol 49 mg/dL (>39); LDL/HDL RATIO 1.4; Low Density Lipoprotein Chol 69 mg/dL (0-110); Potassium, Blood 4.6 mmol/L (3.5-5.5); Sodium, Blood 135 mmol/L (136-145); Thyroid Stimulating Hormone 3.680 uIU/mL (0.360-4.800); Total Protein, Blood 7.6 g/dL (6.4-8.2); Triglycerides 244 mg/dL (30-160); Very Low Density Lipoprot Chol 48 mg/dL (6-32)
== END | disposition home or self-care (01) ==
LOC: LAB SHORT 13:05 → LAB 13:05
PROVIDERS: Nurse Practitioner Family
DX: E11.29 Type 2 diabetes mellitus with other diabetic kidney complication (principal); E78.5 Hyperlipidemia, unspecified; Z79.899 Other long term (current) drug therapy
CPT/HCPCS: 80053; 80061; 82607; 82746; 83036; 84443; 85025